=== PATIENT | male | born 1970 | race Two or more races ===

== ENCOUNTER → 2022-03-13 | Emergency (ER) | payer OTHER ==
[~2022-03-13] VITALS: Ht 154.9 cm; Wt 82.6 kg
[~2022-03-13] MED LIST: FENTANYL PF 100MCG/2ML AMPUL IM ONE; FENTANYL PF 100MCG/2ML AMPUL ONE; HYDROCODONE/APAP 5/325MG TABLET ONE; HYDROCODONE/APAP 5/325MG TABLET PO ONE; IBUP-1957 PO; PROPOFOL 20 ML IV ONE; PROPOFOL 200 MG/20 ML VIAL IV ONE
--- NOTE | 2022-03-13 14:32 | NUR ---
PT BIBS C/O PAIN 10/10 S/P FALL. PT IS A/O X4, CONNECTED TO MONITOR.
--- NOTE | 2022-03-13 15:50 | NUR ---
PROPOFOL 80 MG GIVEN AT 1550 , PT STILL AWAKE, 1551 40 MG GIVEN, 1552 40 MG CLOSE REDUCTION OF RIGHT SHOULDER DISLOCATION ENDED AT 1555.
--- NOTE | 2022-03-13 16:46 | NUR ---
Patient discharged to home in stable condition.RX,Written and verbal after care instructions given. Patient verbalizes understanding of instruction.IV removed. Catheter intact and site benign. Pressure and 4x4 applied to site. No bleeding noted.
[2022-03-13 16:47] VITALS: BP 132/92
== END | disposition home or self-care (01) ==
LOC: ER 14:26
DX: S43.014A Anterior dislocation of right humerus, initial encounter (principal); Z79.1 Long term (current) use of non-steroidal anti-inflammatories (NSAID); W01.0XXA Fall on same level from slipping, tripping and stumbling without subsequent striking against object, initial encounter; Y93.89 Activity, other specified; Y92.89 Other specified places as the place of occurrence of the external cause; Y99.8 Other external cause status
CPT/HCPCS: 23650; 73020; 73030; 96372; 99152; 99285; J2704; J3010; G0500